=== PATIENT | male | born 1935 | race Caucasian/White ===

== ENCOUNTER 2018-06-06 08:39 | Inpatient (IN) ==
[2018-06-06] MEDS ORDERED: methylPREDNISolone SOD SUC 125 MG/2 ML VIAL IV STA (09:04)
[2018-06-06 09:12] LABS: Basophils # 0.1 10*3/uL (0.0-0.2); Basophils % 0.6 % (0.0-0.8); Eosinophils # 0.1 10*3/uL (0.0-0.87); Eosinophils % 0.6 % (0.00-10.9); Hematocrit 45.8 VOL% (42.0-52.0); Hemoglobin 16.5 GM/DL (14.0-18.0); Immature Granulocytes % 0.7 %; Immature Granulocytes Absolute 0.08 #; Lymphocytes # 1.7 10*3/uL (1.4-4.0); Lymphocytes % 15.3 % (21.2-54.2); Mean Corpuscular Hemoglobin 31 PG (27-34); Mean Corpuscular Volume 87.1 FL (87-102); Mean Platelet Volume 9.7 FL (9.6-12.0); Monocytes # 0.7 10*3/uL (0.11-0.8); Monocytes % 6.9 % (1.7-12.7); Neutrophils # 8.2 10*3/uL (1.4-7.4); Neutrophils % 75.9 % (38.7-73.9); Platelet Count 252 T/CUMM (130-400); Red Blood Count 5.26 MC/CUMM (3.8-5.5); Red Cell Distribution Width 12.7 % (9.3-17.3); White Blood Count 10.8 T/CUMM (4-12)
[2018-06-06] MEDS: ALBUTEROL 2.5 MG/3 ML NEB RESP TX SCH ×3 (09:26→10:29)
[2018-06-06 09:34] LABS: Albumin 2.6 G/DL (3.4-5.0); Bilirubin,Total 1.3 MG/DL (0.2-1.0); Calcium 8.5 MG/DL (8.5-10.1); Osmolality,Calculated 282.7 MOS/KG (273-304); Potassium 4.1 MMOL/L (3.5-5.1); Total Protein 6.3 G/DL (6.4-8.3)
[2018-06-06 10:21] LABS: Amorphous Crystals,Urine Occasional /HPF (Few); Apearance,Urine Slightly Hazy (Clear); Bacteria,Urine Occasional /HPF (Few); Bilirubin,Urine Negative (Negative); Blood, Urine Moderate mg/dL (Negative); Glucose,Urine (UA) >=500 mg/dL (Negative); Hyaline Casts,Urine 10 /LPF (0-3); Ketones,Urine 5 mg/dL (Negative); Mucus,Urine Occasional /LPF (Occasional); Nitrite,Urine Negative (Negative); Protein,Urine >=500 MG/DL; RBC,Urine 4 /HPF (0-4); Squamous Epithelial Cell,Urine Occasional /HPF (0-10); Urine Specific Gravity 1.026 (1.001-1.035); Urine Urobilinogen < 2.0 EU/DL (0.2-1.0); WBC,Urine 90 /HPF (0-6)
[2018-06-06 10:22] LABS: Urine Color Dark Yellow (Yellow)
[2018-06-06] MEDS ORDERED: SODIUM CHLORIDE 0.9% 500 ML IV STA (10:40)
[2018-06-06] MEDS ORDERED: LIDOCAINE 1%/EPI INJ 20 ML VIAL ONE (11:33)
[2018-06-06] MEDS ORDERED: HEPARIN/NACL 0.9% 2 UNITS/ML 0 ML IV ONE (11:33)
[2018-06-06] MEDS ORDERED: MIDAZOLAM 2 MG/2 ML VIAL ONE (11:33)
[2018-06-06] MEDS ORDERED: fentaNYL 100 MCG/2 ML VIAL ONE (11:34)
[2018-06-06] MEDS ORDERED: ALTEPLASE 2 MG VIAL ONE (11:45)
[2018-06-06] MEDS ORDERED: MORPHINE 4 MG/1 ML VIAL IV PRN (12:24)
[2018-06-06] MEDS ORDERED: ONDANSETRON 4 MG/2 ML VIAL IV PRN (12:24)
[2018-06-06] MEDS ORDERED: SODIUM CHLORIDE 0.9% 1,000 ML IV SCH (12:30)
[2018-06-06] MEDS ORDERED: HEPARIN DRIP 25,000 UNITS/500 ML PREMIX IV SCH ×2 (12:30)
[2018-06-06] MEDS ORDERED: ALTEPLASE 6 MG in SODIUM CHLORIDE 0.9% 120 ML IV SCH (12:30)
[2018-06-06] MEDS: SODIUM CHLORIDE 0.9% 1,000 ML IV SCH (12:33)
[2018-06-06] MEDS ORDERED: ALBUTEROL 2.5 MG/3 ML NEB RESP TX PRN (12:44)
[2018-06-06 13:43] LABS: PT Patient Result 10.9 SECS
[2018-06-06 16:48] LABS: INR 1.1; PT Patient Result 11.2 SECS
[2018-06-06] MEDS: FINASTERIDE 5 MG TABLET PO SCH (18:29)
[2018-06-06] MEDS: ASPIRIN EC 81 MG TABLET PO SCH (22:01)
[2018-06-07 03:17] LABS: INR 1.1; PT Patient Result 11.4 SECS
[2018-06-07 03:45] LABS: Partial Thromboplastin Time 55.7 SECS (0-40)
[2018-06-07] MEDS ORDERED: GLUCAGON 1 MG VIAL IM PRN (08:22)
[2018-06-07] MEDS ORDERED: DEXTROSE 50% 25 GM/50 ML VIAL IV PRN (08:22)
[2018-06-07] MEDS: INSULIN GLARGINE 100 UNIT/ML SUBCUT SCH (08:30)
[2018-06-07] MEDS: LACTOBACILLUS ACIDOPHILUS/BULGARICUS CAPLET PO SCH (08:31)
[2018-06-07] MEDS: RIVAROXABAN 15 MG TABLET PO SCH ×2 (08:31→16:52)
[2018-06-07] MEDS: CETIRIZINE 10 MG TABLET PO PRN (08:31)
[2018-06-07] MEDS: FLUTICASONE 50 MCG NASAL SPRAY 16 GM BOTTLE BOTH NARES SCH (08:32)
[2018-06-07] MEDS: OMEGA 3 ACID ETHYL ESTERS 1 GM CAPSULE PO SCH (08:32)
[2018-06-07 08:40] LABS: Basophils % 0.1 % (0.0-0.8); Hematocrit 40.5 VOL% (42.0-52.0); Immature Granulocytes % 0.5 %; Immature Granulocytes Absolute 0.05 #; Lymphocytes % 9.2 % (21.2-54.2); Mean Corpuscular HGB Conc 34.1 GM/DL (32-36); Mean Corpuscular Hemoglobin 30 PG (27-34); Mean Corpuscular Volume 89.2 FL (87-102); Mean Platelet Volume 10.6 FL (9.6-12.0); Monocytes # 0.6 10*3/uL (0.11-0.8); Monocytes % 5.9 % (1.7-12.7); Neutrophils # 9.1 10*3/uL (1.4-7.4); Neutrophils % 84.3 % (38.7-73.9); Platelet Count 234 T/CUMM (130-400); Red Blood Count 4.54 MC/CUMM (3.8-5.5); Red Cell Distribution Width 12.8 % (9.3-17.3); White Blood Count 10.7 T/CUMM (4-12)
[2018-06-07 08:46] LABS: Hemoglobin 13.8 GM/DL (14.0-18.0)
[2018-06-07] MEDS ORDERED: INFLUENZA VIRUS VACCINE 0.5 ML SYRINGE IM ONE (09:00)
[2018-06-07] MEDS ORDERED: LOPERAMIDE 2 MG CAPSULE PO ONE (09:20)
[2018-06-07 09:24] LABS: Calcium 7.9 MG/DL (8.5-10.1); Osmolality,Calculated 284.8 MOS/KG (273-304); Potassium 4.3 MMOL/L (3.5-5.1)
[2018-06-07 10:16] LABS: Risk Ratio 3.85; VLDL CHOLESTEROL 15.8 MG/DL
[2018-06-07] MEDS: PIPERACILLIN/TAZOBACTAM 3,375 MG in SODIUM CHLORIDE 0.9% 100 ML IV SCH ×2 (11:00→18:08)
[2018-06-07] MEDS ORDERED: cefTRIAXone 1,000 MG in SODIUM CHLORIDE 0.9% 100 ML IV SCH (11:00)
[2018-06-07] MEDS: INSULIN REGULAR 100 UNIT/ML SUBCUT SCH ×3 (11:31→21:18)
[2018-06-07] MEDS: SODIUM CHLORIDE 0.9% 1,000 ML IV SCH (11:32)
[2018-06-07 12:42] LABS: Partial Thromboplastin Time 33.8 SECS (0-40)
[2018-06-07] MEDS: FINASTERIDE 5 MG TABLET PO SCH (16:52)
[2018-06-07] MEDS ORDERED: MAGNESIUM HYDROXIDE SUSP 30 ML UDCUP PO PRN (18:00)
[2018-06-07] MEDS ORDERED: diphenhydrAMINE CAP 25 MG CAPSULE PO PRN (18:00)
[2018-06-07] MEDS: ATORVASTATIN 40 MG TABLET PO SCH (21:18)
[2018-06-07] MEDS: ASPIRIN EC 81 MG TABLET PO SCH (21:18)
[2018-06-08] MEDS: PIPERACILLIN/TAZOBACTAM 3,375 MG in SODIUM CHLORIDE 0.9% 100 ML IV SCH ×3 (02:44→18:20)
[2018-06-08 05:12] LABS: Basophils % 0.3 % (0.0-0.8); Eosinophils % 0.1 % (0.00-10.9); Hematocrit 38.1 VOL% (42.0-52.0); Immature Granulocytes % 0.5 %; Immature Granulocytes Absolute 0.07 #; Lymphocytes # 1.6 10*3/uL (1.4-4.0); Lymphocytes % 12.7 % (21.2-54.2); Mean Corpuscular HGB Conc 34.1 GM/DL (32-36); Mean Corpuscular Hemoglobin 31 PG (27-34); Mean Corpuscular Volume 89.6 FL (87-102); Mean Platelet Volume 10.1 FL (9.6-12.0); Monocytes % 7.7 % (1.7-12.7); Neutrophils # 10.1 10*3/uL (1.4-7.4); Neutrophils % 78.7 % (38.7-73.9); Platelet Count 227 T/CUMM (130-400); Red Blood Count 4.25 MC/CUMM (3.8-5.5); Red Cell Distribution Width 12.7 % (9.3-17.3); White Blood Count 12.9 T/CUMM (4-12)
[2018-06-08 05:42] LABS: Albumin 2.1 G/DL (3.4-5.0); Calcium 7.8 MG/DL (8.5-10.1); Osmolality,Calculated 276.7 MOS/KG (273-304); Potassium 3.9 MMOL/L (3.5-5.1)
[2018-06-08] MEDS: INSULIN REGULAR 100 UNIT/ML SUBCUT SCH ×4 (07:22→21:43)
[2018-06-08] MEDS: LACTOBACILLUS ACIDOPHILUS/BULGARICUS CAPLET PO SCH (08:26)
[2018-06-08] MEDS: RIVAROXABAN 15 MG TABLET PO SCH ×2 (08:26→17:52)
[2018-06-08] MEDS: OMEGA 3 ACID ETHYL ESTERS 1 GM CAPSULE PO SCH (08:26)
[2018-06-08] MEDS: CETIRIZINE 10 MG TABLET PO PRN (08:26)
[2018-06-08] MEDS: FLUTICASONE 50 MCG NASAL SPRAY 16 GM BOTTLE BOTH NARES SCH (08:28)
[2018-06-08] MEDS: INSULIN GLARGINE 100 UNIT/ML SUBCUT SCH (08:28)
[2018-06-08] MEDS: SODIUM CHLORIDE 0.9% 1,000 ML IV SCH (13:55)
[2018-06-08] MEDS: CARVEDILOL 3.125 MG TABLET PO SCH (17:52)
[2018-06-08] MEDS: FINASTERIDE 5 MG TABLET PO SCH (17:52)
[2018-06-08] MEDS: ASPIRIN EC 81 MG TABLET PO SCH (21:43)
[2018-06-08] MEDS: ATORVASTATIN 40 MG TABLET PO SCH (21:43)
[2018-06-09] MEDS: PIPERACILLIN/TAZOBACTAM 3,375 MG in SODIUM CHLORIDE 0.9% 100 ML IV SCH ×3 (02:54→12:54)
[2018-06-09 04:47] LABS: Basophils # 0.1 10*3/uL (0.0-0.2); Basophils % 0.8 % (0.0-0.8); Eosinophils # 0.3 10*3/uL (0.0-0.87); Eosinophils % 3.3 % (0.00-10.9); Hematocrit 35.6 VOL% (42.0-52.0); Hemoglobin 12.5 GM/DL (14.0-18.0); Immature Granulocytes % 0.4 %; Immature Granulocytes Absolute 0.03 #; Lymphocytes # 1.9 10*3/uL (1.4-4.0); Lymphocytes % 25.3 % (21.2-54.2); Mean Corpuscular HGB Conc 35.1 GM/DL (32-36); Mean Corpuscular Hemoglobin 31 PG (27-34); Mean Corpuscular Volume 88.1 FL (87-102); Monocytes # 0.6 10*3/uL (0.11-0.8); Monocytes % 7.8 % (1.7-12.7); Neutrophils # 4.7 10*3/uL (1.4-7.4); Neutrophils % 62.4 % (38.7-73.9); Platelet Count 241 T/CUMM (130-400); Red Blood Count 4.04 MC/CUMM (3.8-5.5); Red Cell Distribution Width 12.5 % (9.3-17.3); White Blood Count 7.6 T/CUMM (4-12)
[2018-06-09 05:14] LABS: Calcium 7.9 MG/DL (8.5-10.1); Osmolality,Calculated 278.5 MOS/KG (273-304); Potassium 3.4 MMOL/L (3.5-5.1)
[2018-06-09 05:28] LABS: Calcium 7.6 MG/DL (8.5-10.1); Osmolality,Calculated 279.4 MOS/KG (273-304); Potassium 3.6 MMOL/L (3.5-5.1)
[2018-06-09] MEDS: OMEGA 3 ACID ETHYL ESTERS 1 GM CAPSULE PO SCH (08:47)
[2018-06-09] MEDS: INSULIN GLARGINE 100 UNIT/ML SUBCUT SCH (08:47)
[2018-06-09] MEDS: RIVAROXABAN 15 MG TABLET PO SCH (08:47)
[2018-06-09] MEDS: CARVEDILOL 3.125 MG TABLET PO SCH (08:47)
[2018-06-09] MEDS: LACTOBACILLUS ACIDOPHILUS/BULGARICUS CAPLET PO SCH (08:47)
[2018-06-09] MEDS: INSULIN REGULAR 100 UNIT/ML SUBCUT SCH (08:47)
[2018-06-09] MEDS ORDERED: LOSARTAN 25 MG TABLET PO SCH (09:00)
[2018-06-09] MEDS: POTASSIUM CHLORIDE 20 MEQ TABLET PO PRN ×2 (10:04→11:26)
[2018-06-09 11:35] VITALS: BP 126/86
== END 2018-06-09 13:30 | disposition home or self-care (01) ==
LOC: N.ED 08:39 → N.EDINP 11:04 → N.CC 11:28 → N.TELES 06-08 10:38
PROVIDERS: ADMIT Internal Medicine Interventional Cardiology; ATTEND Internal Medicine Interventional Cardiology

== ENCOUNTER 2021-06-22 12:16 | Inpatient (IN) ==
[2021-06-22 13:21] LABS: Basophils % 0.4 % (0.0-0.8); Eosinophils # 0.1 10*3/uL (0.0-0.87); Eosinophils % 0.7 % (0.00-10.9); Hematocrit 42.4 VOL% (42.0-52.0); Hemoglobin 14.9 GM/DL (14.0-18.0); Immature Granulocytes % 0.4 %; Immature Granulocytes Absolute 0.03 #; Lymphocytes # 0.9 10*3/uL (1.4-4.0); Lymphocytes % 13.3 % (21.2-54.2); Mean Corpuscular HGB Conc 35.1 GM/DL (32-36); Mean Corpuscular Volume 87.2 FL (87-102); Mean Platelet Volume 9.8 FL (9.6-12.0); Monocytes % 4.9 % (1.7-12.7); Neutrophils % 80.3 % (38.7-73.9); Platelet Count 294 T/CUMM (130-400); Red Blood Count 4.86 MC/CUMM (3.8-5.5); Red Cell Distribution Width 12.2 % (9.3-17.3); White Blood Count 6.8 T/CUMM (4-12)
[2021-06-22 13:39] LABS: INR 1.1; PT Patient Result 11.9 SECS (10.5-12.0)
[2021-06-22 13:47] LABS: Albumin 3.2 G/DL (3.4-5.0); Bilirubin,Total 1.4 MG/DL (0.20-1.00); Calcium 8.9 MG/DL (8.5-10.1); Potassium 4.1 MMOL/L (3.5-5.1); Total Protein 6.5 G/DL (6.4-8.2)
[2021-06-22] MEDS ORDERED: LABETALOL 20 MG/4 ML SYRINGE IV PRN (14:06)
[2021-06-22] MEDS ORDERED: ASPIRIN 300 MG SUPP RECTAL STA (14:09)
[2021-06-22] MEDS ORDERED: GLUCAGON 1 MG VIAL IM PRN (14:14)
[2021-06-22 14:29] LABS: Barbiturates Screen,Urine Negative (Negative); Benzodiazepines Screen,Urine Negative (Negative); Cannabinoid Screen,Urine Negative (Negative); Opiate Screen,Urine Negative (Negative); Phencyclidine Screen,Urine Negative (Negative)
[2021-06-22 14:40] LABS: Risk Ratio 3.25
[2021-06-22] MEDS ORDERED: FINASTERIDE 5 MG TABLET PO SCH (17:00)
[2021-06-22] MEDS: DEXTROSE 5% NACL 0.9% 1,000 ML IV SCH (17:31)
[2021-06-22] MEDS: DEXTROSE 50% 25 GM/50 ML VIAL IV PRN (17:32)
[2021-06-22] MEDS: INSULIN REGULAR 100 UNIT/ML SUBCUT SCH (17:34)
[2021-06-22] MEDS ORDERED: ENOXAPARIN 30 MG/0.3 ML SYRINGE SUBCUT SCH (21:00)
[2021-06-22 22:00] LABS: Amorphous Crystals,Urine Occasional /HPF (Few); Bilirubin,Urine Negative (Negative); Blood, Urine Small mg/dL (Negative); Glucose,Urine (UA) >=500 mg/dL (Negative); Hyaline Casts,Urine 1 /LPF (0-3); Ketones,Urine Negative (Negative); Mucus,Urine Occasional /LPF (Occasional); Nitrite,Urine Negative (Negative); Protein,Urine 100 MG/DL; Urine Appearance CLEAR (Clear); Urine Color Yellow (Yellow); Urine Specific Gravity 1.015 (1.001-1.035); Urine Urobilinogen < 2.0 EU/DL (0.2-1.0)
[2021-06-23] MEDS: TAMSULOSIN 0.4 MG CAPSULE PO SCH ×3 (00:02→20:06)
[2021-06-23] MEDS: clonazePAM 0.5 MG TABLET PO SCH ×2 (00:02→20:06)
[2021-06-23] MEDS: ATORVASTATIN 40 MG TABLET PO SCH ×2 (00:03→20:06)
[2021-06-23] MEDS: MONTELUKAST 10 MG TABLET PO SCH ×2 (00:03→20:06)
[2021-06-23] MEDS: INSULIN REGULAR 100 UNIT/ML SUBCUT SCH ×4 (00:04→17:20)
[2021-06-23] MEDS: DEXTROSE 50% 25 GM/50 ML VIAL IV PRN ×3 (04:23→21:01)
[2021-06-23] MEDS: DEXTROSE 5% NACL 0.9% 1,000 ML IV SCH (04:26)
[2021-06-23 05:36] LABS: Basophils # 0.1 10*3/uL (0.0-0.2); Basophils % 0.8 % (0.0-0.8); Eosinophils # 0.1 10*3/uL (0.0-0.87); Eosinophils % 0.8 % (0.00-10.9); Hematocrit 36.2 VOL% (42.0-52.0); Hemoglobin 12.6 GM/DL (14.0-18.0); Immature Granulocytes % 0.5 %; Immature Granulocytes Absolute 0.03 #; Lymphocytes # 1.6 10*3/uL (1.4-4.0); Mean Corpuscular HGB Conc 34.8 GM/DL (32-36); Mean Corpuscular Volume 88.7 FL (87-102); Mean Platelet Volume 9.7 FL (9.6-12.0); Monocytes % 10.3 % (1.7-12.7); Neutrophils % 62.6 % (38.7-73.9); Platelet Count 245 T/CUMM (130-400); Red Blood Count 4.08 MC/CUMM (3.8-5.5); Red Cell Distribution Width 12.3 % (9.3-17.3); White Blood Count 6.2 T/CUMM (4-12)
[2021-06-23 06:06] LABS: Calcium 8.8 MG/DL (8.5-10.1); Potassium 3.6 MMOL/L (3.5-5.1)
[2021-06-23] MEDS: ASPIRIN 325 MG TABLET PO SCH (11:08)
[2021-06-23] MEDS ORDERED: ALBUTEROL 2.5 MG/3 ML NEB RESP TX PRN (11:29)
[2021-06-23] MEDS: DEXTROSE 10% 1,000 ML IV SCH (12:26)
[2021-06-23] MEDS: LOSARTAN 25 MG TABLET PO SCH (20:06)
[2021-06-24] MEDS: INSULIN REGULAR 100 UNIT/ML SUBCUT SCH ×7 (00:44→23:30)
[2021-06-24 06:22] LABS: Basophils # 0.1 10*3/uL (0.0-0.2); Basophils % 0.9 % (0.0-0.8); Eosinophils # 0.2 10*3/uL (0.0-0.87); Eosinophils % 2.8 % (0.00-10.9); Hematocrit 38.3 VOL% (42.0-52.0); Hemoglobin 13.5 GM/DL (14.0-18.0); Immature Granulocytes % 0.3 %; Immature Granulocytes Absolute 0.02 #; Lymphocytes # 1.6 10*3/uL (1.4-4.0); Lymphocytes % 27.8 % (21.2-54.2); Mean Corpuscular HGB Conc 35.2 GM/DL (32-36); Mean Corpuscular Volume 87.8 FL (87-102); Mean Platelet Volume 9.7 FL (9.6-12.0); Monocytes % 10.9 % (1.7-12.7); Neutrophils % 57.3 % (38.7-73.9); Platelet Count 249 T/CUMM (130-400); Red Blood Count 4.36 MC/CUMM (3.8-5.5); Red Cell Distribution Width 11.9 % (9.3-17.3); White Blood Count 5.8 T/CUMM (4-12)
[2021-06-24 06:51] LABS: Calcium 8.8 MG/DL (8.5-10.1); Osmolality,Calculated 268.4 MOS/KG (273-304); Potassium 3.5 MMOL/L (3.5-5.1)
[2021-06-24] MEDS ORDERED: DEXTROSE 10% 250 ML BAG IV SCH (09:00)
[2021-06-24] MEDS: TAMSULOSIN 0.4 MG CAPSULE PO SCH ×2 (11:51→21:38)
[2021-06-24] MEDS: PANTOPRAZOLE 40 MG TABLET PO SCH (11:51)
[2021-06-24] MEDS: ASPIRIN 325 MG TABLET PO SCH (11:51)
[2021-06-24] MEDS: LOSARTAN 25 MG TABLET PO SCH (11:52)
[2021-06-24] MEDS ORDERED: RIVAROXABAN 20 MG TABLET PO SCH (17:00)
[2021-06-24] MEDS: DEXTROSE 10% 1,000 ML IV SCH (17:21)
[2021-06-24] MEDS: MONTELUKAST 10 MG TABLET PO SCH (21:38)
[2021-06-24] MEDS: ATORVASTATIN 40 MG TABLET PO SCH (21:38)
[2021-06-24] MEDS: clonazePAM 0.5 MG TABLET PO SCH (21:38)
[2021-06-25] MEDS: INSULIN REGULAR 100 UNIT/ML SUBCUT SCH ×3 (05:02→11:31)
[2021-06-25 05:10] LABS: Basophils # 0.1 10*3/uL (0.0-0.2); Basophils % 0.8 % (0.0-0.8); Eosinophils # 0.2 10*3/uL (0.0-0.87); Eosinophils % 2.6 % (0.00-10.9); Hematocrit 36.8 VOL% (42.0-52.0); Hemoglobin 13.1 GM/DL (14.0-18.0); Immature Granulocytes % 0.5 %; Immature Granulocytes Absolute 0.03 #; Lymphocytes # 1.4 10*3/uL (1.4-4.0); Lymphocytes % 21.1 % (21.2-54.2); Mean Corpuscular HGB Conc 35.6 GM/DL (32-36); Mean Corpuscular Volume 87.6 FL (87-102); Monocytes % 9.2 % (1.7-12.7); Neutrophils % 65.8 % (38.7-73.9); Platelet Count 247 T/CUMM (130-400); Red Cell Distribution Width 11.9 % (9.3-17.3); White Blood Count 6.6 T/CUMM (4-12)
[2021-06-25 05:29] LABS: Calcium 8.6 MG/DL (8.5-10.1); Osmolality,Calculated 280.4 MOS/KG (273-304); Potassium 3.8 MMOL/L (3.5-5.1)
[2021-06-25 05:42] LABS: PT Patient Result 11.4 SECS (10.5-12.0); Partial Thromboplastin Time 27.2 SECS (23.8-32.1)
[2021-06-25] MEDS: DEXTROSE 10% 1,000 ML IV SCH (09:13)
[2021-06-25] MEDS: LACTATED RINGERS 1,000 ML IV SCH (09:14)
[2021-06-25] MEDS: ASPIRIN 325 MG TABLET PO SCH ×2 (09:14→12:12)
[2021-06-25] MEDS: LOSARTAN 25 MG TABLET PO SCH ×2 (09:14→12:12)
[2021-06-25] MEDS: TAMSULOSIN 0.4 MG CAPSULE PO SCH ×3 (09:15→21:02)
[2021-06-25] MEDS: PANTOPRAZOLE 40 MG TABLET PO SCH ×2 (09:15→12:13)
[2021-06-25] MEDS: SODIUM CHLORIDE 0.9% 1,000 ML IV SCH (12:11)
[2021-06-25] MEDS: INSULIN LISPRO 100 UNIT/ML SUBCUT SCH ×2 (17:01→21:02)
[2021-06-25] MEDS: ATORVASTATIN 40 MG TABLET PO SCH (21:01)
[2021-06-25] MEDS: MONTELUKAST 10 MG TABLET PO SCH (21:02)
[2021-06-25] MEDS: clonazePAM 0.5 MG TABLET PO SCH (21:06)
[2021-06-26] MEDS: SODIUM CHLORIDE 0.9% 1,000 ML IV SCH ×2 (02:22→15:31)
[2021-06-26 04:50] LABS: Basophils % 0.7 % (0.0-0.8); Eosinophils # 0.2 10*3/uL (0.0-0.87); Eosinophils % 4.3 % (0.00-10.9); Hematocrit 34.2 VOL% (42.0-52.0); Hemoglobin 12.1 GM/DL (14.0-18.0); Immature Granulocytes % 0.5 %; Immature Granulocytes Absolute 0.02 #; Lymphocytes # 1.3 10*3/uL (1.4-4.0); Lymphocytes % 31.3 % (21.2-54.2); Mean Corpuscular HGB Conc 35.4 GM/DL (32-36); Mean Corpuscular Volume 87.5 FL (87-102); Mean Platelet Volume 9.7 FL (9.6-12.0); Monocytes % 9.4 % (1.7-12.7); Neutrophils % 53.8 % (38.7-73.9); Platelet Count 208 T/CUMM (130-400); Red Blood Count 3.91 MC/CUMM (3.8-5.5); Red Cell Distribution Width 12.1 % (9.3-17.3); White Blood Count 4.2 T/CUMM (4-12)
[2021-06-26 05:16] LABS: Calcium 8.3 MG/DL (8.5-10.1); Osmolality,Calculated 273.1 MOS/KG (273-304); Potassium 3.3 MMOL/L (3.5-5.1)
[2021-06-26] MEDS ORDERED: POTASSIUM CHLORIDE 20 MEQ TABLET PO ONE (07:11)
[2021-06-26] MEDS: INSULIN LISPRO 100 UNIT/ML SUBCUT SCH ×3 (08:53→15:31)
[2021-06-26] MEDS ORDERED: LIDOCAINE 2% 5 ML VIAL ONE (12:23)
[2021-06-26] MEDS ORDERED: propofoL 200 MG/20 ML VIAL IV ONE (12:23)
[2021-06-26] MEDS: LACTATED RINGERS 1,000 ML IV SCH (12:45)
[2021-06-26] MEDS: LOSARTAN 25 MG TABLET PO SCH (13:26)
[2021-06-26] MEDS: ASPIRIN 325 MG TABLET PO SCH (13:26)
[2021-06-26] MEDS: TAMSULOSIN 0.4 MG CAPSULE PO SCH (13:27)
[2021-06-26] MEDS: PANTOPRAZOLE 40 MG TABLET PO SCH (13:27)
[2021-06-26 14:00] VITALS: BP 144/85
== END 2021-06-26 17:56 | DRG 69 ==
LOC: EDBD → EDUNIT# → N.ED 12:16 → SUATTDRO 14:06 → N.TELES 14:06
PROVIDERS: ADMIT Internal Medicine; ATTEND Internal Medicine